=== PATIENT | male | born 1940 | race Caucasian/White ===

== ENCOUNTER 2020-08-07 12:37 | Observation (INO) | payer MEDICARE, SELFPAY ==
[2020-08-07] VITALS (20 sets, daily range): BP systolic 101–181; BP diastolic 53–87; PULSE 78–110; RESP 15–21; TEMP 36.4–37.6; O2SAT 92–97; BMI 25.8
--- NOTE | 2020-08-07 | PATH_ITS ---
[facility] Accession Number: [id number] . 01 Material submitted: . PART A: duodenum - DUODENAL BIOPSY/ULCER PART B: gastrointestinal site - STOMACH BIOPSY PART C: esophagus - ESOPHAGEAL BIOPSY . 01 Clinical history: . CAN'T SWALLOW OR DRINK, COUGHING UP PHLEM . 02 Diagnosis: A. Duodenum, Biopsy: Duodenal mucosa with foveolar metaplasia and ulcer, consistent with peptic duodenitis. Negative for features of sprue, dysplasia, or malignancy. . B. Stomach: Gastric antral mucosa with mild chronic inflammation and focal intestinal metaplasia. Intestinal metaplasia present in one of two biopsy fragments. Negative for Helicobacter organisms by immunohistochemistry. Negative for dysplasia or malignancy. . C. Esophagus, Biopsy: Zaina esoophagitis. Fungal hyphae morphologically consistent with zaina species highlighted on AB/PAS stain. Negative for dysplasia or malignancy. [facility] 08/12/2020 1645 Local . 02 Electronically signed: . Richard Tyson MD, PhD, Pathologist NPI- [id number] . 01 Gross description: . A. Specimen A is received in formalin, labeled duodenal biopsy/ulcer and consists of a 0.3 x 0.2 x 0.2 cm saul-pink fragment of soft tissue, which is entirely submitted in cassette A1. B. Specimen B is received in formalin, labeled stomach and consists of two saul fragments of soft tissue, measuring 0.5 x 0.4 x 0.2 cm in aggregate. The specimen is entirely submitted in cassette B1. C. Specimen C is received in formalin, labeled esophageal biopsy and consists of multiple saul fragments of soft tissue, measuring 0.5 x 0.4 x 0.2 cm in aggregate. The specimen is filtered and entirely submitted in cassette C1. ([id number]) /[facility] 08/10/2020 1700 Local . 02 Microscopic: . B. An immunohistochemical stain was performed to evaluate for Helicobacter organisms and is negative. The control stain showed appropriate reactivity. . C. An AB/PAS stain is performed to evaluate for fungal organisms, and highlights fungal hyphae and yeast forms morphologically consistent with zaina species. The control stain shows appropriate reactivity. . * This test was developed and its performance characteristics determined by [facility]. It has not been cleared or approved by the U.S. Food and Drug Administration. The FDA has determined that such clearance or approval is not necessary. This test is used for clinical purposes. It should not be regarded as investigational or for research. . 02 Pathologist provided ICD-10: K29.80, K31.9, B37.81 . 02 CPT . 698655, 688276, 473005, [id number], 947180 Performed at: 01 [facility] [place] [address] [id number] MD Wilfredo Morrell MD Phone: [phone] Performed at: 02 [facility] [place] [address] [place], [place] [id number] MD Eleanor Swanson MD Phone: [phone]
--- NOTE | 2020-08-07 13:41 | PC.NURSE ---
Pt reports since 1700 last night unable to keep down food or fluids due to feeling narrowed in his esophagus. states i really dont think anything is stuck States he had an endoscopy 4-5 years ago which showed nothing Pt spitting in emesis bag intermittently. speaking in full sentences.
[2020-08-07 13:54] LABS: Add Manual Diff / Slide Review NO; Basophils Absolute Auto 100 /uL (0-100); Basophils Percent Auto 0.4 % (0-2); Eosinophils Absolute Auto 200 /uL (0-450); Eosinophils Percent Auto 1.6 % (2-4); Hematocrit 44.6 % (41-53); Hemoglobin 14.8 g/dL (13.5-17.5); Lymphocytes Absolute Auto 1400 /uL (1100-4500); Lymphocytes Percent Auto 9.8 % (25-40); Mean Corpuscular HGB Conc 33.2 % (30-36); Mean Corpuscular Hemoglobin 31.7 PG (26-34); Mean Corpuscular Volume 95.4 fL (80-100); Monocytes Absolute Auto 1500 /uL (0-900); Monocytes Percent Auto 10.8 % (3-14); Neutrophils Absolute Auto 10900 /uL (1500-7000); Neutrophils Percent Auto 77.4 % (50-75); Platelet Count 240 X10^3/uL (150-400); Red Blood Cell Count 4.68 X10^6/uL (4.5-5.9); Red Cell Distribution Width 13.3 % (11.6-14.8); White Blood Cell Count 14.1 X10^3/uL (4.5-11.0)
[2020-08-07 14:01] LABS: Alanine Aminotransferase 16 IU/L (<50); Albumin 4.5 g/dL (3.5-5.0); Albumin Globulin Ratio 1.2 (1.0-2.8); Alkaline Phosphatase 99 U/L (38-126); Aspartate Aminotransferase 30 IU/L (17-59); BUN Creatinine Ratio 14.6 (6-22); Bilirubin Total 2.1 mg/dL (0.2-1.3); Blood Urea Nitrogen 13 mg/dL (9-20); Calcium 9.5 mg/dL (8.4-10.2); Carbon Dioxide 29 mmol/L (22-32); Chloride 102 mmol/L (98-107); Estimated Glomerular Filt Rate > 60.0 mL/min (>60); Globulin 3.7 g/dL (1.7-4.1); Glucose 119 mg/dL (80-110); HEMOLYSIS < 15 (0-50); Sodium 139 mmol/L (137-145); Total Protein 8.2 g/dL (6.3-8.2)
[2020-08-07] MEDS: SODIUM CHLORIDE 0.9% 1,000 ML 1000 ML IV (14:07)
[2020-08-07] MEDS: GLUCAGON,HUMAN RECOMBINANT 1 MG/ML VIAL IV (14:07)
[2020-08-07 14:31] LABS: COVID19 -Nasal RAPID Negative (Negative)
[2020-08-07] MEDS: ONDANSETRON 4 MG/2 ML INJ IV (15:36)
[2020-08-07] MEDS: METOCLOPRAMIDE 10 MG/2 ML INJ IV (15:36)
[2020-08-07] MEDS: diphenhydrAMINE 50 MG/ML VIAL 25 MG IV (15:36)
--- NOTE | 2020-08-07 17:04 | P.HP_ITS ---
History of Present Illness History of Present Illness Date Patient Seen: 08/07/20 Time Patient Seen: 17:04 Date of Onset of Symptoms: 08/06/20 Chief complaint: Can't Swallow or Drink, Coughing Up Phlem Narrative: This is a 80-year-old man with history of swallowing dysfunction, sinusitis, sinus surgery, HTN, DM2, chronic emphysema/bronchitis requiring inhalers, and food impaction requiring EGD in the past. He came into the ER today with complaint of having food stuck in his esophagus. He says he was eating last night around 5:00 p.m. and had roast beef which he felt got stuck in his esophagus, and ever since then anything he tried to eat or drink would not go down. He is not able to keep down his own secretions. In the ER he was given glucagon, Reglan, and Benadryl. He did not have any resolution of his symptoms. Past medical history: The pt recalls some of his medical history. Per chart review he has: DM2, HTN, Emphysema Says he has had a lot of trouble with his sinuses, and his throat. He says he has a lot of phlegm. He denies having had balloon dilation of his esophagus in the past although he syas he has had an EGD in the past for similar symptoms. Reviewing his chart I see a report from an EGD by Dr. Galdamez in 2014 which was normal. He has had two barium swallows which were non specific or normal. He says he has had other episodes since then where he has vomited up the food got stuck and was able to go back to normal after that. He denies any heart problems, heart attack, or stroke. Past surgical history: Sounds like he had a direct laryngoscopy by an ENT, he had sinus surgery, and he had an ankle surgery. Medications: He is not certain of all of his medications, but he does use an inhaler for his bronchitis/asthma Per chart review he takes Metformin, Lisinopril, Atorvastatin, and an Aspirin Allergies: Denies any allergies Family history: No esophageal disorders, he believes his family has many people with cancer, diabetes, and high blood pressure Social: He denies smoking tobacco (per chart review heavy smoking history, quit 12 years ago), reports having 1 or 2 drinks per week, denies other substances. ROS: He denies any chest pain, difficulty breathing, dysuria. He says he does feel little bit dehydrated, and has not urinated very much in the last 24 hours. Thirteen system review is otherwise negative other than as mentioned below and in HPI. PE: GENERAL: Well groomed and cooperative. Appears stated age. Answers questions promptly and appropriately. Vital signs noted. HENT: Normocephalic, atraumatic. Hard of hearing, with bilateral hearing aids in place. Somewhat abnormal, hoarse voice. Neck is nontender and supple. No enlarged or tender cervical lymph nodes. Normal swallowing, nontender nonenlarged thyroid. EYES: Conjunctiva pink, sclera white, no periorbital swelling. CARDIOVASCULAR: Regular rate. No pedal edema. RESPIRATORY: Non-tachypneic, breathing comfortably on room air. GASTROINTESTINAL: Abdomen soft and non-distended GENITALURINARY: No flank tenderness. MUSCULOSKELETAL: Equal tone and mass bilaterally. SKIN: Warm, dry, soft, appropriate color for ethnicity. No other lesions, rashes, or wounds. NEURO: Alert and Oriented X 3. No gross sensory deficits, or cognitive issues. PSYCH: Appropriate affect and mood. Patient History Family & Social History Safety & Behavioral: Feels Safe in Current Yes Environment Been Physically Hurt or No Threatened By a Person Tobacco & Substance use: Smoking Status Unknown if ever smoked alcohol intake frequency holiday/special occasion Substance Use Type does not use Meds Home Medications and Allergies Home Medications Medication Instructions Recorded Confirmed Type [BLOOD PRESSURE PILL] #0 12/05/06 History [DIABETIC MEDICINE] #0 12/05/06 History mupirocin 1 jorge TOPICAL TID #22 gm 09/22/17 Rx azithromycin [Zithromax] 250 - 500 mg PO QDAY #6 tab 10/22/17 Rx tiotropium bromide [Spiriva with 1 puff INH QDAY #0 10/22/17 History HandiHaler] Allergies Allergy/AdvReac Type Severity Reaction Status Date / Time No Known Drug Allergies Allergy Verified 08/07/20 12:43 Exam Vital Signs (past 8 hours): - 08/07/20 12:40 08/07/20 13:01 08/07/20 13:02 Temperature 97.6 F Pulse Rate 110 H 96 H 94 H Respiratory Rate 15 Blood Pressure 148/87 H 132/65 Pulse Oximetry 94 94 94 08/07/20 13:30 08/07/20 14:00 08/07/20 14:30 Temperature Pulse Rate 92 H 85 86 Respiratory Rate Blood Pressure 144/69 H 130/67 Pulse Oximetry 95 93 92 08/07/20 15:00 08/07/20 15:30 08/07/20 16:00 Temperature Pulse Rate 78 87 84 Respiratory Rate Blood Pressure 152/70 H 158/74 H 164/77 H Pulse Oximetry 94 94 94 Oxygen Delivery Method Room Air Objective Labs Result Diagrams: 08/07/20 13:00 08/07/20 13:00 Labs: Laboratory Results - last 24 hr 08/07/20 08/07/20 08/07/20 13:00 13:00 14:12 WBC 14.1 H RBC 4.68 Hgb 14.8 Hct 44.6 MCV 95.4 MCH 31.7 MCHC 33.2 RDW 13.3 Plt Count 240 Neut % (Auto) 77.4 H Lymph % (Auto) 9.8 L O'Brien % (Auto) 10.8 Eos % (Auto) 1.6 L Baso % (Auto) 0.4 Neut # (Auto) 65188 H Lymph # (Auto) 1400 O'Brien # (Auto) 1500 H Eos # (Auto) 200 Baso # (Auto) 100 Sodium 139 Potassium 4.0 Chloride 102 Carbon Dioxide 29 BUN 13 Creatinine 0.89 Estimated GFR > 60.0 BUN/Creatinine Ratio 14.6 Glucose 119 H Calcium 9.5 Total Bilirubin 2.1 H AST 30 ALT 16 Alkaline Phosphatase 99 Total Protein 8.2 Albumin 4.5 Globulin 3.7 Albumin/Globulin Ratio 1.2 COVID-19 PCR Negative Assessment & Plan Assessment and plan (1) Esophageal obstruction due to food impaction: Status: Acute (2) History of sinusitis: Status: Acute (3) History of sinus surgery: Status: Acute (4) Hypertension: Status: Acute (5) Diabetes: Status: Acute (6) Asthma: Status: Acute (7) Chronic bronchitis: Status: Acute Assessment & Plan narrative: This is a 72-year-old man with 24 hours of food impaction symptoms, consistent with a complete obstruction of his esophagus. He has not responded to medications given in the ER. Risks and benefits of esophagoscopy and removal of the foreign body under general anesthesia were discussed with the patient including risk of bleeding, perforation, damage to nearby structures, need for additional procedures, risks of anesthesia. The patient desires to proceed with EGD and removal of food impaction. I have told him he may go home this evening or tomorrow depending on what we find and how he tolerates the procedure. Plan: IV fluids Urgently to OR for EGD and disimpaction of food bolus under general anesthesia with ET tube intubation COVID-19 COVID-19 status: Negative Result date/Date tested (Pos, Neg/Pending): 08/07/20 Time Spent With Patient Time with patient: 25 - 35 minutes Quality VTE Deep Vein Thrombosis/Pulmonary Embolism Present on Admission: No
--- NOTE | 2020-08-07 18:20 | PM.OP.ENDO ---
Operative Date/Time/Diagnoses Date of procedure: 08/07/20 Time of procedure: 18:20 Pre-op diagnosis: Esophageal food impaction Post-op diagnosis: other (Esophageal meat impaction, duodenal ulcers, gastritis, fungal esophagitis) Procedure & Clinicians Study performed: Esophagogastroduodenoscopy Disimpaction of esophageal meat bolus using rat tooth forceps Biopsy of duodenum, stomach, and esophagus using standard biopsy forceps Same procedure as scheduled: Yes Indications: Food impaction in esophagus Surgeon: Yanet Rodrigues Procedure Notes SCOAP/Timeout: Performed Procedure in detail: The patient was brought to the room and identified. General anesthesia was induced and the patient was intubated by Dr. Myles. He was then placed in left lateral decubitus position with all bony prominences padded. A bite block was positioned in the patient's mouth to protect the lips, teeth, and tongue for the procedure. A surgical time-out was performed. The lubricated gastroscope was passed through the bite block and across the tongue and into the esophagus without incident. A tubular view of the esophagus was maintained as the scope was advanced. There were copious white plaques on the esophageal mucosa consistent with fungal esophagitis. The scope was advanced to the distal esophagus. At about 38cm a meat bolus was encountered. I was not able to push it down, and so it was removed piecemeal using rat tooth forceps. The meat was removed in three large hunks. Once the esophagus was cleared of impacted meat, it was examined thoroughly. There was not a specific ring or web, and no neoplasm was seen. The distal esophagus was edematous and somewhat narrow, but I was able to pass the scope into the stomach without incident. The scope was advanced through the stomach and to the pylorus. The scope was gently popped through the pylorus and into the duodenal bulb. Multiple shallow ulcers were seen at various stages of healing throughout the duodenal bulb and first part of the duodenum. The ulcers stopped at the second portion of the duodenum and were not seen in the third portion of the duodenum. These were biopsied. There was no active bleeding in the duodenum. The scope was withdrawn into the stomach. Mild to moderate endoscopic gastritis was seen in the distal stomach. This was biopsied. The scope was retroflexed and the gastric cardia was examined. There was no hiatal hernia. Fungal appearing plaques were seen at the GE junction. The scope was then straightened, and withdrawn into the esophagus. The Z-line appeared edematous, but obvious tongues of gastric mucosa were not seen coming up into the esophagus. The view was obscured by the fungal plaques and edema. The distal, mid and upper esophagus were biopsied, including samples of the fungal plaques. The scope was then withdrawn through the esophagus with a tubular view. The scope was then withdrawn from the patient the procedure was concluded. The patient was awakened from anesthesia and extubated. The patient tolerated the procedure well and was transferred to the PACU in stable condition. Findings: gastritis and other findings (severe duodenitis with duodenal ulcers, mild to moderate gastritis, fungal appearing esophagitis; impacted meat in distal esophagus) Specimen(s): other (Duodenum, stomach, esophagus) Complications: none Impression: Severe ulcerating duodenitis, gastritis, fungal appearing esophagitis with edema and narrowing of the distal esophagus Post-procedure Recommendations: Prescription for (Fluconazole,nystatin swish/swallow, omprazole), No ASA/NSAIDS, EGD in 6-8 weeks and Will call with biopsy results Plan for aftercare: Transfer to inpatient unit to begin treatment for esophagitis and for close monitoring over night Follow up: weeks (2) Disposition: Acute Care
--- NOTE | 2020-08-07 18:35 | ED_ITS ---
HPI - Nausea/Vomiting/Diarrhea <GARETH Lopez - Last Filed: 08/07/20 18:41> General Chief complaint: Nausea/Vomiting/Diarrhea Stated complaint: Can't Swallow or Drink, Coughing Up Phlem Time Seen by Provider: 08/07/20 13:16 Source: patient Mode of arrival: Ambulatory Limitations: no limitations History of Present Illness HPI Narrative: The patient is a 80-year-old male nonsmoker with history of ?breathing problems,hypertension, diabetes who presents with a chief complaint of inability to swallow food or drink or his secretions. This started at 8:00 p.m. last night when he was eating pot roast for dinner. He has not been able to take down any food or fluids since then. He denies any fevers, abdominal pain, states he feels ?100% other than the fact that I cannot swallow.He states that he has had issues with food boluses in the past, states he was scoped 5 years ago and no abnormalities were found. He does not believe that there is food stuck in his throat, though this occurred while he was trying to eat pot roast. Related Data Home Medications Medication Instructions Recorded Confirmed Spiriva with HandiHaler 1 puff INH QDAY #0 10/22/17 08/08/20 aspirin [Adult Low Dose Aspirin] 81 mg PO DAILY 08/08/20 08/08/20 atorvastatin 20 mg PO QPM 08/08/20 08/08/20 lisinopril 20 mg PO DAILY 08/08/20 08/08/20 metformin 500 mg PO DAILY 08/08/20 08/08/20 Previous Rx's Medication Instructions Recorded amoxicillin 1,000 mg PO Q12H #56 cap 08/08/20 clarithromycin 500 mg PO BID #30 tab 08/08/20 fluconazole [Diflucan] 100 mg PO DAILY #10 tab 08/08/20 omeprazole 20 mg PO BID #60 cap 08/08/20 Allergies Allergy/AdvReac Type Severity Reaction Status Date / Time No Known Drug Allergies Allergy Verified 08/07/20 12:43 Review of Systems <GARETH Lopez - Last Filed: 08/07/20 18:41> Review of Systems Narrative: GENERAL: Denies chills, fatigue, malaise, fever, sweats. HEENT: Denies sinus pain, ear pain, sore throat, difficulty swallowing, dizziness. RESPIRATORY: Denies dyspnea, cough, wheezing, hemoptysis, sputum. CARDIOVASCULAR: Denies chest pain, palpitations, orthopnea, edema, GASTROINTESTINAL: See HPI : Denies dysuria, frequency, incontinence, hematuria, urinary retention. MUSCULOSKELETAL: denies weakness, joint pain, or bony pain SKIN: Denies rash, skin lesions, or other NEUROLOGIC: Denies weakness, headache, numbness, change in speech, confusion, seizures, incoordination. PSYCHIATRIC: No concerning psychosocial issues. 12 point review of systems is negative except for those stated above Patient History <LATOSHA Lopez-BC - Last Filed: 08/07/20 18:41> Social History household members: none Smoking Status: Former smoker Smoking Status: Unknown if ever smoked alcohol intake frequency: holidays/special occasions only Substance Use Type: does not use Exam <LATOSHA Lopez-BC - Last Filed: 08/07/20 18:41> Narrative Exam Narrative: GENERAL: This is a well-nourished, well-developed patient, holding vomit bag HEAD: Atraumatic. Normocephalic. No temporal or scalp tenderness. EYES: Pupils equal round and reactive. Extraocular motions intact. No scleral icterus. No injection or drainage. ENT: Nose without bleeding, purulent drainage or septal hematoma. Throat without erythema, tonsillar hypertrophy or exudate. Uvula midline. Airway patent. Unable to swallow secretions NECK: Trachea midline. No JVD or lymphadenopathy. Supple, nontender, no meningeal signs. CARDIOVASCULAR: Regular rate and rhythm RESPIRATORY: Coarse bilaterally to auscultation. Increased respiratory effort. Speaking full sentences. GASTROINTESTINAL: Abdomen soft, non-tender, nondistended. No hepato- splenomegaly, or palpable masses. No guarding. Active bowel sounds all 4 quadrants. EXTREMITIES: No clubbing, cyanosis, or edema. No joint tenderness, effusion, or edema noted. BACK: Nontender without deformity or crepitance. No flank tenderness. NEURO: AOx3. Interactive. Age appropriate. SKIN: No rash or erythema on visible skin. Initial Vital Signs Initial Vital Signs: Vital Signs Temperature 97.6 F 08/07/20 12:40 Pulse Rate 110 H 08/07/20 12:40 Respiratory Rate 15 08/07/20 12:40 Blood Pressure 148/87 H 08/07/20 12:40 Pulse Oximetry 94 08/07/20 12:40 <Vikki Carmichael DO - Last Filed: 08/12/20 10:13> Initial Vital Signs Initial Vital Signs: Vital Signs Temperature 97.6 F 08/07/20 12:40 Pulse Rate 110 H 08/07/20 12:40 Respiratory Rate 15 08/07/20 12:40 Blood Pressure 148/87 H 08/07/20 12:40 Pulse Oximetry 94 08/07/20 12:40 Scores <GARETH Lopez - Last Filed: 08/07/20 18:41> GCS [place] coma scale eye opening: Spontaneous Roscoe coma scale verbal response: Orientated [place] coma scale motor response: Obey commands [place] coma scale total score: 15 Course <GARETH Lopez - Last Filed: 08/07/20 18:41> Orders Ordered: Discontinued Medications Diphenhydramine HCl (Benadryl) 25 mg IV NOW ONE Stop: 08/07/20 15:25 Last Admin: 08/07/20 15:36 Dose: 25 mg Documented by: JOSEFINA Fentanyl (Sublimaze) 0 mcg IV Q5MIN PRN PRN Reason: Pain, Severe (7-10) Fluconazole (Diflucan) 400 mg PO DAILY [facility] Last Admin: 08/08/20 08:54 Dose: 400 mg Documented by: KIKI Glucagon (Glucagen) 1 mg IV NOW ONE Stop: 08/07/20 13:46 Last Admin: 08/07/20 14:07 Dose: 1 mg Documented by: JOSEFINA Hydromorphone HCl (Dilaudid) 0 mg IV Q5MIN PRN PRN Reason: Pain, Mild (1-3) Sodium Chloride (Normal Saline 0.9%) 1,000 mls @ 1,000 mls/hr IV BOLUS ONE Stop: 08/07/20 15:04 Last Infusion: 08/07/20 15:15 Dose: 0 mls/hr Documented by: Admin: 08/07/20 14:07 Dose: 1,000 mls/hr Documented by: JOSEFINA Sodium Chloride (Normal Saline 0.9%) 1,000 mls @ 250 mls/hr IV CONT [facility] Last Admin: 08/07/20 17:34 Dose: Not Given Documented by: JOSEFINA Lactated Ringer's (Lactated Ringers) 1,000 mls @ 42 mls/hr IV CONT [facility] Last Admin: 08/07/20 19:10 Dose: Not Given Documented by: LUZ MARIA Lactated Ringer's (Lactated Ringers) 1,000 mls @ 120 mls/hr IV CONT [facility] Last Admin: 08/08/20 08:51 Dose: 120 mls/hr Documented by: Infusion: 08/08/20 08:47 Dose: 0 mls/hr Documented by: Admin: 08/07/20 19:21 Dose: 120 mls/hr Documented by: LUZ MARIA Fluconazole (Diflucan) 800 mg in 400 mls @ 100 mls/hr IV NOW ONE Stop: 08/07/20 23:06 Last Admin: 08/07/20 20:57 Dose: 100 mls/hr Documented by: JAUN Fluconazole (Diflucan) 400 mg in 200 mls @ 100 mls/hr IV NOW ONE Stop: 08/07/20 23:04 Last Admin: 08/07/20 21:29 Dose: Not Given Documented by: JAUN Metoclopramide HCl (Reglan) 10 mg IV NOW ONE Stop: 08/07/20 15:25 Last Admin: 08/07/20 15:36 Dose: 10 mg Documented by: JOSEFINA Nystatin (Mycostatin Susp) 500,000 unit PO BID [facility] Last Admin: 08/08/20 08:54 Dose: 500,000 unit Documented by: Admin: 08/07/20 21:01 Dose: 500,000 unit Documented by: JAUN Ondansetron HCl (Zofran) 4 mg IV NOW ONE Stop: 08/07/20 15:16 Last Admin: 08/07/20 15:36 Dose: 4 mg Documented by: JOSEFINA Pantoprazole Sodium (Protonix) 40 mg IV BID [facility] Last Admin: 08/08/20 08:54 Dose: 40 mg Documented by: Admin: 08/07/20 20:56 Dose: 40 mg Documented by: JAUN Vital Signs Vital signs: Vital Signs - 8 hr 08/07/20 12:40 08/07/20 13:01 08/07/20 13:02 Temperature 97.6 F Pulse Rate 110 H 96 H 94 H Respiratory Rate 15 Blood Pressure 148/87 H 132/65 Pulse Oximetry 94 94 94 08/07/20 13:30 08/07/20 14:00 08/07/20 14:30 Temperature Pulse Rate 92 H 85 86 Respiratory Rate Blood Pressure 144/69 H 130/67 Pulse Oximetry 95 93 92 08/07/20 15:00 08/07/20 15:30 08/07/20 16:00 Temperature Pulse Rate 78 87 84 Respiratory Rate Blood Pressure 152/70 H 158/74 H 164/77 H Pulse Oximetry 94 94 94 08/07/20 16:30 08/07/20 17:00 Temperature Pulse Rate 93 H 91 H Respiratory Rate Blood Pressure 168/78 H 181/79 H Pulse Oximetry 96 95 <Vikki Carmichael, - Last Filed: 08/12/20 10:13> Orders Ordered: Discontinued Medications Diphenhydramine HCl (Benadryl) 25 mg IV NOW ONE Stop: 08/07/20 15:25 Last Admin: 08/07/20 15:36 Dose: 25 mg Documented by: JOSEFINA Fentanyl (Sublimaze) 0 mcg IV Q5MIN PRN PRN Reason: Pain, Severe (7-10) Fluconazole (Diflucan) 400 mg PO DAILY [facility] Last Admin: 08/08/20 08:54 Dose: 400 mg Documented by: KIKI Glucagon (Glucagen) 1 mg IV NOW ONE Stop: 08/07/20 13:46 Last Admin: 08/07/20 14:07 Dose: 1 mg Documented by: JOSEFINA Hydromorphone HCl (Dilaudid) 0 mg IV Q5MIN PRN PRN Reason: Pain, Mild (1-3) Sodium Chloride (Normal Saline 0.9%) 1,000 mls @ 1,000 mls/hr IV BOLUS ONE Stop: 08/07/20 15:04 Last Infusion: 08/07/20 15:15 Dose: 0 mls/hr Documented by: Admin: 08/07/20 14:07 Dose: 1,000 mls/hr Documented by: JOSEFINA Sodium Chloride (Normal Saline 0.9%) 1,000 mls @ 250 mls/hr IV CONT [facility] Last Admin: 08/07/20 17:34 Dose: Not Given Documented by: JOSEFINA Lactated Ringer's (Lactated Ringers) 1,000 mls @ 42 mls/hr IV CONT [facility] Last Admin: 08/07/20 19:10 Dose: Not Given Documented by: LUZ MARIA Lactated Ringer's (Lactated Ringers) 1,000 mls @ 120 mls/hr IV CONT [facility] Last Admin: 08/08/20 08:51 Dose: 120 mls/hr Documented by: Infusion: 08/08/20 08:47 Dose: 0 mls/hr Documented by: Admin: 08/07/20 19:21 Dose: 120 mls/hr Documented by: LUZ MARIA Fluconazole (Diflucan) 800 mg in 400 mls @ 100 mls/hr IV NOW ONE Stop: 08/07/20 23:06 Last Admin: 08/07/20 20:57 Dose: 100 mls/hr Documented by: JAUN Fluconazole (Diflucan) 400 mg in 200 mls @ 100 mls/hr IV NOW ONE Stop: 08/07/20 23:04 Last Admin: 08/07/20 21:29 Dose: Not Given Documented by: JAUN Metoclopramide HCl (Reglan) 10 mg IV NOW ONE Stop: 08/07/20 15:25 Last Admin: 08/07/20 15:36 Dose: 10 mg Documented by: JOSEFINA Nystatin (Mycostatin Susp) 500,000 unit PO BID [facility] Last Admin: 08/08/20 08:54 Dose: 500,000 unit Documented by: Admin: 08/07/20 21:01 Dose: 500,000 unit Documented by: JAUN Ondansetron HCl (Zofran) 4 mg IV NOW ONE Stop: 08/07/20 15:16 Last Admin: 08/07/20 15:36 Dose: 4 mg Documented by: JOSEFINA Pantoprazole Sodium (Protonix) 40 mg IV BID [facility] Last Admin: 08/08/20 08:54 Dose: 40 mg Documented by: Admin: 08/07/20 20:56 Dose: 40 mg Documented by: JAUN Vital Signs Vital signs: Vital Signs - 8 hr 08/07/20 12:40 08/07/20 13:01 08/07/20 13:02 Temperature 97.6 F Pulse Rate 110 H 96 H 94 H Respiratory Rate 15 Blood Pressure 148/87 H 132/65 Pulse Oximetry 94 94 94 08/07/20 13:30 08/07/20 14:00 08/07/20 14:30 Temperature Pulse Rate 92 H 85 86 Respiratory Rate Blood Pressure 144/69 H 130/67 Pulse Oximetry 95 93 92 08/07/20 15:00 08/07/20 15:30 08/07/20 16:00 Temperature Pulse Rate 78 87 84 Respiratory Rate Blood Pressure 152/70 H 158/74 H 164/77 H Pulse Oximetry 94 94 94 08/07/20 16:30 08/07/20 17:00 Temperature Pulse Rate 93 H 91 H Respiratory Rate Blood Pressure 168/78 H 181/79 H Pulse Oximetry 96 95 MDM - Nausea/Vomiting/Diarrhea <LATOSHA Lopez- - Last Filed: 08/07/20 18:41> Lab Data Result diagrams: 08/08/20 05:06 08/08/20 05:06 Labs: Lab Results 08/07/20 08/07/20 08/07/20 Range/Units 13:00 13:00 14:12 WBC 14.1 H (4.5-11.0) X10^3/uL RBC 4.68 (4.5-5.9) X10^6/uL Hgb 14.8 (13.5-17.5) g/dL Hct 44.6 (41-53) % MCV 95.4 (80-100) fL MCH 31.7 (26-34) PG MCHC 33.2 (30-36) % RDW 13.3 (11.6-14.8) % Plt Count 240 (150-400) X10^3/uL Neut % (Auto) 77.4 H (50-75) % Lymph % (Auto) 9.8 L (25-40) % Carver % (Auto) 10.8 (3-14) % Eos % (Auto) 1.6 L (2-4) % Baso % (Auto) 0.4 (0-2) % Neut # (Auto) 46968 H (2900-2881) /uL Lymph # (Auto) 1400 (6615-1200) /uL Carver # (Auto) 1500 H (0-900) /uL Eos # (Auto) 200 (0-450) /uL Baso # (Auto) 100 (0-100) /uL Sodium 139 (137-145) mmol/L Potassium 4.0 (3.4-5.1) mmol/L Chloride 102 (98-107) mmol/L Carbon Dioxide 29 (22-32) mmol/L BUN 13 (9-20) mg/dL Creatinine 0.89 (0.66-1.25) mg/dL Estimated GFR > 60.0 (>60) mL/min BUN/Creatinine Ratio 14.6 (6-22) Glucose 119 H (80-110) mg/dL Calcium 9.5 (8.4-10.2) mg/dL Total Bilirubin 2.1 H (0.2-1.3) mg/dL AST 30 (17-59) IU/L ALT 16 (<50) IU/L Alkaline Phosphatase 99 (38-126) U/L Total Protein 8.2 (6.3-8.2) g/dL Albumin 4.5 (3.5-5.0) g/dL Globulin 3.7 (1.7-4.1) g/dL Albumin/Globulin Ratio 1.2 (1.0-2.8) COVID-19 PCR Negative (Negative) MDM Narrative Medical decision making narrative: The patient is a 80-year-old male who presents with a chief complaint of inability to swallow his own secretions food and water. His history is concerning for food boluses. He was treated in the emergency depart with IV fluids, glucagon, Reglan and Benadryl as per Dr. Rodrigues from surgery. This was unsuccessful. Subsequently the patient was taken to the operating room for scoped by Dr. Rodrigues. The patient remained pleasant, interactive, nontoxic appearing and in no apparent distress throughout his stay in the emergency department. <Vikki Carmichael, DO - Last Filed: 08/12/20 10:13> Lab Data Attestation: I reviewed the patient's lab results. Labs: Lab Results 08/07/20 08/07/20 08/07/20 Range/Units 13:00 13:00 14:12 WBC 14.1 H (4.5-11.0) X10^3/uL RBC 4.68 (4.5-5.9) X10^6/uL Hgb 14.8 (13.5-17.5) g/dL Hct 44.6 (41-53) % MCV 95.4 (80-100) fL MCH 31.7 (26-34) PG MCHC 33.2 (30-36) % RDW 13.3 (11.6-14.8) % Plt Count 240 (150-400) X10^3/uL Neut % (Auto) 77.4 H (50-75) % Lymph % (Auto) 9.8 L (25-40) % Carver % (Auto) 10.8 (3-14) % Eos % (Auto) 1.6 L (2-4) % Baso % (Auto) 0.4 (0-2) % Neut # (Auto) 01688 H (6010-7303) /uL Lymph # (Auto) 1400 (6017-8157) /uL Carver # (Auto) 1500 H (0-900) /uL Eos # (Auto) 200 (0-450) /uL Baso # (Auto) 100 (0-100) /uL Sodium 139 (137-145) mmol/L Potassium 4.0 (3.4-5.1) mmol/L Chloride 102 (98-107) mmol/L Carbon Dioxide 29 (22-32) mmol/L BUN 13 (9-20) mg/dL Creatinine 0.89 (0.66-1.25) mg/dL Estimated GFR > 60.0 (>60) mL/min BUN/Creatinine Ratio 14.6 (6-22) Glucose 119 H (80-110) mg/dL Calcium 9.5 (8.4-10.2) mg/dL Total Bilirubin 2.1 H (0.2-1.3) mg/dL AST 30 (17-59) IU/L ALT 16 (<50) IU/L Alkaline Phosphatase 99 (38-126) U/L Total Protein 8.2 (6.3-8.2) g/dL Albumin 4.5 (3.5-5.0) g/dL Globulin 3.7 (1.7-4.1) g/dL Albumin/Globulin Ratio 1.2 (1.0-2.8) COVID-19 PCR Negative (Negative) MDM Narrative Medical decision making narrative: patient case discussed attempted glucagon without improvement, patient taken to OR for scope by Dr. Rodrigues. Discharge Plan Departure Patient Disposition: Admitted to Surgery Clinical Impression: Esophageal obstruction due to food impaction Discharge Date/Time: 08/07/20 17:33 Admit Date/Time: 08/07/20 17:00 Admit Provider: Yanet Rodrigues
--- NOTE | 2020-08-07 18:52 | SUR.PHASEI ---
pt transferred to acute care floor in stable condition, vss. Bedside report given to ELI Mosley upon arrival to room. Pt transferred himself from stretcher into bed. Transferred care of pt to ELI Mosley at that time.
[2020-08-07] MEDS: LACTATED RINGERS 1,000 ML 120 ML IV (19:21)
[2020-08-07 20:27] LABS: Hemoglobin A1C% w Est Avg Glu 6.1 % (4.0-6.0)
[2020-08-07] MEDS: PANTOPRAZOLE 40 MG VIAL IV (20:56)
[2020-08-07] MEDS: PIGGYBACK IV (20:57)
[2020-08-07] MEDS: FLUCONAZOLE 800 MG/400 ML IV (20:57)
[2020-08-07] MEDS: NYSTATIN SUSP 500,000 UNIT/5 ML UDC 500000 UNIT PO (21:01)
[2020-08-07 21:22] LABS: HIV 1 & 2 Ab/Ag 4th Gen Combo NEGATIVE (NEGATIVE)
[2020-08-08 00:05] VITALS: BP 159/57; PULSE 85; RESP 16; TEMP 37; O2SAT 94
[2020-08-08 04:10] VITALS: BP 109/59; PULSE 74; RESP 16; TEMP 37.2; O2SAT 95
[2020-08-08 05:29] LABS: Add Manual Diff / Slide Review NO; Basophils Absolute Auto 100 /uL (0-100); Basophils Percent Auto 0.5 % (0-2); Eosinophils Absolute Auto 700 /uL (0-450); Eosinophils Percent Auto 5.1 % (2-4); Hematocrit 37.8 % (41-53); Hemoglobin 12.4 g/dL (13.5-17.5); Lymphocytes Absolute Auto 1600 /uL (1100-4500); Lymphocytes Percent Auto 11.8 % (25-40); Mean Corpuscular HGB Conc 32.9 % (30-36); Mean Corpuscular Hemoglobin 31.8 PG (26-34); Mean Corpuscular Volume 96.6 fL (80-100); Monocytes Absolute Auto 1500 /uL (0-900); Monocytes Percent Auto 11.3 % (3-14); Neutrophils Absolute Auto 9500 /uL (1500-7000); Neutrophils Percent Auto 71.3 % (50-75); Platelet Count 195 X10^3/uL (150-400); Red Blood Cell Count 3.91 X10^6/uL (4.5-5.9); Red Cell Distribution Width 13.2 % (11.6-14.8); White Blood Cell Count 13.2 X10^3/uL (4.5-11.0)
[2020-08-08 05:43] LABS: Alanine Aminotransferase 11 IU/L (<50); Albumin 3.3 g/dL (3.5-5.0); Albumin Globulin Ratio 1.2 (1.0-2.8); Alkaline Phosphatase 65 U/L (38-126); Aspartate Aminotransferase 21 IU/L (17-59); BUN Creatinine Ratio 15.1 (6-22); Bilirubin Total 1.7 mg/dL (0.2-1.3); Blood Urea Nitrogen 13 mg/dL (9-20); Calcium 8.5 mg/dL (8.4-10.2); Carbon Dioxide 29 mmol/L (22-32); Chloride 104 mmol/L (98-107); Estimated Glomerular Filt Rate > 60.0 mL/min (>60); Globulin 2.8 g/dL (1.7-4.1); Glucose 88 mg/dL (80-110); HEMOLYSIS < 15 (0-50); Sodium 136 mmol/L (137-145); Total Protein 6.1 g/dL (6.3-8.2)
[2020-08-08 05:45] LABS: Magnesium 1.8 mg/dL (1.6-2.3); Phosphorous 3.5 mg/dL (2.3-3.7)
[2020-08-08] MEDS: LACTATED RINGERS 1,000 ML 120 ML IV (08:51)
[2020-08-08] MEDS: PANTOPRAZOLE 40 MG VIAL IV (08:54)
[2020-08-08] MEDS: NYSTATIN SUSP 500,000 UNIT/5 ML UDC 500000 UNIT PO (08:54)
[2020-08-08] MEDS: FLUCONAZOLE 40 MG/ML SUSP 400 MG PO (08:54)
--- NOTE | 2020-08-08 10:57 | PC.NURSE ---
Pt is dressed and ready for discharge home. He has his own vehicle here. [place] town. HL has been removed. Went over d/c instructions with Pt- reviewed discharge meds, time of last dose, encouraged easy to digest/soft foods to help with healing of the throat and ulcer. Reviewed stroke education and Pt to follow up with Dr. Scott next week. Pt denies further questions and was taken out via w/c by TRANSFER DRIVER with all belongings .
--- NOTE | 2020-08-08 12:51 | CM.DANOTE ---
Addendum entered by Rina Persaud LPN 08/08/20 13:06: Pt was taken urgently to OR for EGD and removal of food impaction. Today he was ok'd for dc to home. A check in now shows that he left for his home in [place] in his vehicle just before 11AM. No d/c concerns were noted by the care team members. Follow up with Dr. Scott was planned. Original Note: Discharge Planning/Care Management DCP: assessment: case received, EMr reviewed. Discussed in Team Rounds. Pt is a 80 year old male who admitted to care of [facility]: Dr. Rodrigues. Payer: Medicare and [employer]ARP PCP: Dr. Scott. CM Discharge Assessment Start: 08/08/20 12:50 Freq: Status: Active Protocol: Document 08/08/20 12:50 ITV (Rec: 08/08/20 12:51 ITV [id number]) Discharge Planning Assessment Advance Directives? No History Provided By Medical Record Prior Living Arrangements House Household Members none Type of transportation used prior to Drives own vehicle admit Independent with ADL's Yes Is patient alert and oriented? Yes
--- NOTE | 2020-08-09 17:18 | P.DS_ITS ---
History of Present Illness History of Present Illness Chief complaint: Can't Swallow or Drink, Coughing Up Phlem Discharge Providers Provider Date of admission: 08/07/20 17:00 Discharge Date: 08/08/20 Primary care physician: Alexander Scott MD Consults: 08/07/20 19:43 Consult to Dietitian, Adult Routine Comment: Reason For Exam: Swallowing difficulties, recent wt loss. Discharge provider: Shyam Galdamez MD Summary Hospital Course Discharge Diagnosis: Esophageal obstruction acute due to food esophagitis clinically due to yeast. Biopsies pending. Gastritis mild acute duodenal ulcers multiple acute without bleeding elevated cholesterol chronic on medication hypertension chronic on medication type 2 diabetes chronic on medication Exam Vital Signs (past 8 hours): Oxygen Delivery Method Room Air Oxygen Flow Rate 0 Narrative Exam Narrative: lungs are clear to auscultation no rales or rhonchi heart re gular rate and rhythm no murmur gallop abdomen soft nontender without mass Objective Labs Result Diagrams: 08/08/20 05:06 08/08/20 05:06 Discharge Assessment & Plan Assessment and Plan Assessment: patient with multiple ulcers in his duodenum, gastritis, possible yeast and esophagitis, and obstruction of his esophagus due to food he underwent an EGD to relieve his obstruction and biopsies were taken at the time of the EGD. He was discharged on fluconazole, treatment for H pylori with omeprazole twice a day, clarithromycin 500 b.i.d. and amoxicillin 1 g b.i.d.. He is to follow up with Dr. Rodrigues Discharge Plan Discharge Plan Patient Disposition: Home Provider Discharge Comment: you have inflammation in your esophagus (food pipe) and ulcers Discharge orders & Medications Prescriptions: New fluconazole [Diflucan] 100 mg tablet 100 mg PO DAILY Qty: 10 RF: 0 omeprazole 20 mg capsule,delayed release(DR/EC) 20 mg PO BID Qty: 60 RF: 2 amoxicillin 500 mg capsule 1,000 mg PO Q12H Qty: 56 RF: 0 clarithromycin 500 mg tablet 500 mg PO BID Qty: 30 RF: 0 Continued Spiriva with HandiHaler 18 MCG capsule, w/inhalation device 1 puff INH QDAY Qty: 0 RF: 0 atorvastatin 20 mg Tablet 20 mg PO QPM RF: 0 lisinopril 20 mg Tablet 20 mg PO DAILY RF: 0 aspirin [Adult Low Dose Aspirin] 81 mg Tablet,Delayed Release (Dr/Ec) 81 mg PO DAILY RF: 0 metformin 500 mg Tablet Extended Release 24 Hr 500 mg PO DAILY RF: 0 Follow up/Referrals: Alexander Scott MD [Primary Care Provider] - Diet/Activity/Treatments Diet: Diet as Tolerated Diet comment: soft easy to swollow foods Activity: no restriction Visit Report/Discharge Packet Instructions: DI for Gastroesophageal Reflux Disease (GERD), DI for Gastric Ulcer, Amoxicillin, Fluconazole, Clarithromycin, Omeprazole, Karen Esophagitis Visit Report Forms: Patient Portal/API, Stroke Signs & Symptoms Discharge Data Primary Care Provider: Alexander Scott Attending Provider: Yanet Rodrigues Admit Date/Time: 08/07/20 17:00 Discharges patient from system. Discharge Date/Time: 08/08/20 11:02 Quality VTE Deep Vein Thrombosis/Pulmonary Embolism Present on Admission: No
--- NOTE | 2020-08-13 00:14 | PC.NURSE ---
Late Entry: Diflucan infusion initiated 08/07 @ 20:57, complete 00:58.
== END 2020-08-08 11:02 | disposition home or self-care (01) ==
LOC: ED 13:16 → AC 17:01
PROVIDERS: Admitting Provider Surgery; Emergency Provider Nurse Practitioner Family; Family Provider Family Medicine; PCP Family Medicine; Referring Provider Nurse Practitioner Family; Visit Provider Surgery
PROC: 0DJ08ZZ Inspection of Upper Intestinal Tract, Via Natural or Artificial Opening Endoscopic (ICD-10-PCS; CPT 43235; principal; 2020-08-07 17:30)
DX: T18.128A Food in esophagus causing other injury, initial encounter (principal); R11.2 Nausea with vomiting, unspecified; I10 Essential (primary) hypertension; E11.9 Type 2 diabetes mellitus without complications; J45.909 Unspecified asthma, uncomplicated; Z79.84 Long term (current) use of oral hypoglycemic drugs; K26.9 Duodenal ulcer, unspecified as acute or chronic, without hemorrhage or perforation; K29.50 Unspecified chronic gastritis without bleeding; K20.80 Other esophagitis without bleeding; Z11.59 Encounter for screening for other viral diseases
CPT/HCPCS: 43247; 43239; 36415; 80053; 82962; 83036; 83735; 84100; 85025; 87040; 87389; 87635; 96361; 96365; 96366; 96375; 96376; 99218; 99284; G0378; C9113; J1200; J1450; J1610; J2405; J2765

== ENCOUNTER → 2020-08-24 10:41 | Outpatient (CLI) | payer MEDICARE, SELFPAY ==
[2020-08-07 19:31] VITALS: BMI 25.8
--- NOTE | 2020-08-24 10:43 | DI.RAD.S_ITS ---
PROCEDURE: FL BARIUM SWALLOW INDICATIONS: Karen esophagitis, dysphagia COMPARISON: [facility], BARIUM SWALLOW WITH SPEECH, 02/17/2016, 11:33. [facility], BARIUM SWALLOW WITH SPEECH, 11/10/2015, 11:32. FINDINGS: Function: There is normal esophageal peristalsis. There was both moderate spontaneous and elicited gastroesophageal reflux. No distal esophageal stricture was observed Morphology: Air-contrast images demonstrate normal mucosal morphology. Single contrast views show no esophageal strictures, extrinsic mass effects, or diverticula. Limited images of the stomach demonstrate normal appearance. IMPRESSION: Moderate spontaneous and elicited gastroesophageal reflux without evidence of mass or stricture associated. At times the reflux extended to the junction of the upper and middle thirds of the esophagus. Dictated by: Irwin Richey M.D. on 08/24/2020 at 14:56 Approved by: Irwin Richey M.D. on 08/24/2020 at 14:57
== END ==
PROVIDERS: Family Provider Family Medicine; PCP Family Medicine; Referring Provider Family Medicine; Visit Provider Surgery
DX: R13.10 Dysphagia, unspecified (principal); B37.81 Candidal esophagitis
CPT/HCPCS: 74220

== ENCOUNTER → 2020-11-11 13:45 | Outpatient (CLI) | payer MEDICARE, SELFPAY ==
[2020-11-08 13:23] VITALS: BMI 25.8
[2020-11-11 15:50] LABS: COVID19 -Nasal RAPID Negative (Negative)
== END ==
PROVIDERS: Family Provider Family Medicine; PCP Family Medicine; Visit Provider Surgery
DX: Z20.822 Contact with and (suspected) exposure to COVID-19 (principal); Z01.812 Encounter for preprocedural laboratory examination
CPT/HCPCS: 87635; C9803

== ENCOUNTER 2020-11-12 09:29 | Day surgery (SDC) | payer MEDICARE, SELFPAY ==
[2020-08-07 19:31] VITALS: BMI 25.8
[2020-11-08 13:23] VITALS: BMI 25.8
[2020-11-12] VITALS (8 sets, daily range): BP systolic 102–133; BP diastolic 58–73; PULSE 71–77; RESP 10–16; TEMP 36.3–37; O2SAT 94–99; BMI 26.7
--- NOTE | 2020-11-12 | PATH_ITS ---
[facility] Accession Number: [id number] . 01 Material submitted: . PART A: duodenum - DUODENAL PART B: gastrointestinal site - STOMACH PART C: esophagus - ESOPHAGUS . 02 Diagnosis: A. Duodenum, Biopsy: Duodenal mucosa with no diagnostic abnormality. Negative for active inflammation, features of sprue, dysplasia, or malignancy. . B. Stomach, Biopsies: Gastric antral and body mucosa with mild chronic inflammation and focal intestinal metaplasia. Intestinal metaplasia present in one of two antral biopsy fragments. Negative for Helicobacter organisms by immunohistochemistry. Negative for dysplasia or malignancy. . C. Esophagus, Biopsies: Karen esophagitis. Fungal hpyhae and yeast forms morphologically consistent with Karen species seen on H/E stain. Negative for dysplasia or malignancy. MRV 11/18/2020 1338 Local . 02 Electronically signed: . Richard Tyson MD, PhD, Pathologist NPI- [id number] . 01 Gross description: . Part A: DUODENAL: Received in formalin are 2 fragment(s) of saul, soft tissue measuring 0.2 x 0.2 x 0.1 cm to 0.3 x 0.3 x 0.2 cm submitted entirely in 1 cassette(s) Part B: STOMACH: Received in formalin are 2 fragment(s) of saul, soft tissue measuring 0.2 x 0.2 x 0.1 cm to 0.4 x 0.2 x 0.2 cm submitted entirely in 1 cassette(s) Part C: ESOPHAGUS: Received in formalin are multiple fragment(s) of saul, soft tissue measuring 0.1 x 0.1 x 0.1 cm to 0.2 x 0.2 x 0.2 cm submitted entirely in 1 cassette(s) /MARGARET 11/15/2020 1912 Local . 02 Microscopic: . B. An immunohistochemical stain was performed to evaluate for Helicobacter organisms and is negative. The control stain showed appropriate reactivity. . * This test was developed and its performance characteristics determined by [facility]. It has not been cleared or approved by the U.S. Food and Drug Administration. The FDA has determined that such clearance or approval is not necessary. This test is used for clinical purposes. It should not be regarded as investigational or for research. . 02 Pathologist provided ICD-10: K29.70, K31.9, B37.81 . 02 CPT . 649876, 549093, 163976, U96192 Performed at: 01 [facility] [address] [place] [address], [place], [place] [id number] MD Wilfredo Morrell MD Phone: [phone] Performed at: 02 [facility] [address] [place] [id number] MD Eleanor Swanson MD Phone: [phone]
[2020-11-12] MEDS: SODIUM CHLORIDE 0.9% 1,000 ML 200 ML IV (10:28)
--- NOTE | 2020-11-12 10:34 | PM.HP.1 ---
History of Present Illness History of Present Illness Date Patient Seen: 11/12/20 Time Patient Seen: 10:34 Chief complaint: SDC Narrative: This is a 80-year-old man with history of swallowing dysfunction, sinusitis, sinus surgery, HTN, DM2, chronic emphysema/bronchitis requiring inhalers, and food impaction requiring EGD in the past. He came into the ER in July with complaint of having food stuck in his esophagus. He was taken to the OR for EGD, and was found to have meat impacted in his esophagus, and significant esophageal edema and the appearance of fungus lining the esophagus. He was found to have fungal esophagitis, and was treated with course of antifungals. The patient says he is doing very well now, and denies any swallowing difficulties. He says he sometimes has some white color on his tongue, and his primary doctor has put him on prednisone recently for this. He was taken off of the PPI because of an apparent allergic reactions/rash that developed, and was thought to be due to the PPI. He says he finished his course of antifungals, and has been able to eat liquids and solids with no problems and is making sure to chew his food well. ROS: Patient reports a cough, in chronic sinus issues. Thirteen system review is otherwise negative other than as mentioned below and in HPI. PE: GENERAL: Well groomed and cooperative. Appears stated age. Answers questions promptly and appropriately. Vital signs noted. HENT: Normocephalic, atraumatic. Hard of hearing, with bilateral hearing aids in place. hoarse, gravelly voice which is his baseline. Normal appearance of tongue without coating or discoloration. Neck is nontender and supple. No enlarged or tender cervical lymph nodes. EYES: Conjunctiva pink, sclera white, no periorbital swelling. CARDIOVASCULAR: Regular rate. No pedal edema. RESPIRATORY: Non-tachypneic, breathing comfortably on room air. GASTROINTESTINAL: Abdomen soft and non-distended GENITALURINARY: No flank tenderness. MUSCULOSKELETAL: Equal tone and mass bilaterally. SKIN: Warm, dry, soft, appropriate color for ethnicity. No other lesions, rashes, or wounds. NEURO: Alert and Oriented X 3. No gross sensory deficits, or cognitive issues. PSYCH: Appropriate affect and mood. Patient History Family & Social History Social History: household members none Tobacco & Substance use: Smoking Status Former smoker alcohol intake current alcohol intake frequency a few times a week Substance Use Type does not use Meds Home Medications and Allergies Home Medications Medication Instructions Recorded Confirmed Type Spiriva with HandiHaler 1 puff INH QDAY #0 10/22/17 11/12/20 History atorvastatin 20 mg PO QPM 08/08/20 11/12/20 History lisinopril 20 mg PO DAILY 08/08/20 11/12/20 History metformin 500 mg PO DAILY 08/08/20 11/12/20 History hydroxyzine HCl 50 mg PO BEDTIME 11/12/20 11/12/20 History prednisone 5 mg PO PER PKG DIR 11/12/20 11/12/20 History Allergies Allergy/AdvReac Type Severity Reaction Status Date / Time No Known Drug Allergies Allergy Verified 11/12/20 10:00 Exam Vital Signs (past 8 hours): - 11/12/20 10:18 Temperature 97.9 F Pulse Rate 72 Respiratory Rate 16 Blood Pressure 133/73 Pulse Oximetry 99 Oxygen Delivery Method Room Air Assessment & Plan Assessment and plan (1) Dysphagia: Qualifiers: Dysphagia type: unspecified Qualified Code(s): R13.10 - Dysphagia, unspecified Status: Acute (2) Peptic ulcer disease: Status: Acute (3) Esophageal yeast infection: Status: Acute (4) Fungal esophagitis: Status: Acute Assessment & Plan narrative: Risks and benefits of surveillance EGD and possible biopsy were discussed with the patient including risk of bleeding, perforation, need for additional procedures, risks of anesthesia. The patient desires to proceed with the upper endoscopy procedure. COVID-19 COVID-19 status: Negative Result date/Date tested (Pos, Neg/Pending): 11/11/20 Time Spent With Patient Time with patient: 15-24 minutes Quality VTE Deep Vein Thrombosis/Pulmonary Embolism Present on Admission: No
[2020-11-12] MEDS: fentaNYL 250 MCG/5 ML INJ IV (10:42)
[2020-11-12] MEDS: MIDAZOLAM 5 MG/5 ML VIAL IV (10:42)
[2020-11-12] MEDS: LIDOCAINE 4% SOLN 50 ML 20 ML TOP (10:43)
--- NOTE | 2020-11-12 10:56 | PM.OP.ENDO ---
Operative Date/Time/Diagnoses Date of procedure: 11/12/20 Time of procedure: 10:56 Pre-op diagnosis: History of fungal esophagitis and meat impaction Post-op diagnosis: other (Normal caliber esophagus, without narrowing, but with appearance of ongoing duodenal ulcers and esophageal fungus) Procedure & Clinicians Study performed: Esophagogastric duodenoscopy Biopsies of duodenum, stomach, esophagus using standard forceps Procedural sedation performed by the endoscopist Same procedure as scheduled: Yes Indications: History of duodenal ulcers, esophageal candidiasis, esophageal edema, and meat impacted Surgeon: Yanet Rodrigues Procedure Notes SCOAP/Timeout: Performed Procedure in detail: The patient was brought to the room and placed in left lateral decubitus position with all bony prominences padded. A bite block was positioned in the patient's mouth to protect the lips, teeth, and tongue for the procedure. A time-out was performed and then the patient was given procedural sedation starting with [4] mg of Versed and [100] mcg of fentanyl. Vitals were monitored throughout the procedure and remained stable. Once adequately sedated, the procedure was begun. The lubricated gastroscope was passed through the bite block and across the tongue and into the esophagus without incident. A tubular view of the esophagus was maintained as the scope was advanced through the esophagus and into the stomach. Adherent patches of white debris were seen diffusely throughout the esophagus, consistent with an ongoing fungal infection, although much improved from his prior presentation. There was no narrowing of the esophagus or edema of the esophagus. The scope was advanced through the stomach and to the pylorus. The scope was gently popped through the pylorus and into the duodenal bulb. The scope was flexed and advanced into the second and third portions of the duodenum. The 2nd and 3rd portions of the duodenum appeared normal. There was a shallow ulcer in the duodenal bulb a with signs of erosion, although improved from prior. Biopsies were taken. The scope was withdrawn into the stomach. There was some moderate endoscopic gastritis in the stomach, with no erosions or active bleeding. Biopsies were taken. The scope was retroflexed and the gastric cardia was examined. There is no gaping of the scope at the hiatus, and no evidence of hiatal hernia. The scope was then straightened, and withdrawn into the esophagus. Biopsies were taken in the distal, mid, and upper esophagus to rule out ongoing fungal esophagitis. The scope was then withdrawn through the esophagus with a tubular view. The scope was then withdrawn from the patient the procedure was concluded. The patient tolerated the procedure well and was transferred to the PACU in stable condition. Sedation minutes: 13 Findings: duodenal ulcer, gastritis and other findings (Fungal plaques in the esophagus) Specimen(s): other (Biopsies of the duodenum, stomach, and esophagus) Complications: none Impression: Ongoing ulcerations of the duodenum, and ongoing fungal plaques in the esophagus Post-procedure Recommendations: Other recommendation (Pending biopsy results) Follow up: as needed Disposition: PACU
--- NOTE | 2020-11-12 11:50 | SUR.PHASEII ---
Pt has met discharge criteria: VSS, able to drink fluids without difficulty, denied pain or nausea. Discharge instructions discussed with pt, all questions answered. Transported via W/C to private vehicle.
== END 2020-11-12 11:56 | disposition home or self-care (01) ==
PROVIDERS: Family Provider Family Medicine; PCP Family Medicine; Referring Provider Surgery; Visit Provider Surgery
PROC: 0DJ08ZZ Inspection of Upper Intestinal Tract, Via Natural or Artificial Opening Endoscopic (ICD-10-PCS; CPT 43235; principal; 2020-11-12 10:45)
DX: B37.81 Candidal esophagitis (principal); T18.128A Food in esophagus causing other injury, initial encounter; R13.10 Dysphagia, unspecified; K29.50 Unspecified chronic gastritis without bleeding; K26.9 Duodenal ulcer, unspecified as acute or chronic, without hemorrhage or perforation
CPT/HCPCS: 43239; 99152; J2250; J3010

== ENCOUNTER → 2021-04-13 09:43 | Outpatient (CLI) | payer MEDICARE, SELFPAY ==
[2020-11-08 13:23] VITALS: BMI 25.8
[2021-04-13 10:59] LABS: COVID19 -Nasal RAPID Negative (Negative)
== END ==
PROVIDERS: Family Provider Family Medicine; PCP Family Medicine; Visit Provider Surgery
DX: Z20.822 Contact with and (suspected) exposure to COVID-19 (principal)
CPT/HCPCS: 87635; C9803

== ENCOUNTER 2021-04-14 08:17 | Day surgery (SDC) | payer MEDICARE, SELFPAY ==
[2020-11-08 13:23] VITALS: BMI 25.8
[2021-04-14] VITALS (8 sets, daily range): BP systolic 105–133; BP diastolic 66–83; PULSE 2–85; RESP 11–22; TEMP 36.2–36.7; O2SAT 94–99; BMI 27.3
--- NOTE | 2021-04-14 | PATH_ITS ---
[facility] Accession Number: [id number] . 01 Material submitted: . PART A: stomach - STOMACH BIOPSY PART B: esophagus - ESOPHAGUS BIOPSY . 02 Diagnosis: A. Stomach, Biopsy: Antral and body-type mucosa with mild chronic gastritis and intestinal metaplasia. Negative for Helicobacter by immunohistochemistry. Negative for dysplasia and malignancy. . B. Esophagus, Biopsy: Squamous epithelium with no diagnostic abnormality. Intraepithelial eosinophils are not increased. Negative for dysplasia and malignancy. MRV 04/20/2021 1446 Local . 02 Electronically signed: . Eleanor Swanson MD, Pathologist NPI- [id number] . 01 Gross description: . Part A: STOMACH BIOPSY: Received in formalin are multiple fragment(s) of saul, soft tissue measuring 1.2 x 0.4 x 0.2 cm in aggregate submitted entirely in 1 cassette(s) Part B: ESOPHAGUS BIOPSY: Received in formalin are multiple fragment(s) of saul, soft tissue measuring 0.4 x 0.3 x 0.1 cm in aggregate submitted entirely in 1 cassette(s) /GISSEL 04/15/2021 0434 Local . 02 Microscopic: . A. An immunohistochemical stain was performed to evaluate for Helicobacter organisms and is negative. The control stain showed appropriate reactivity. . * This test was developed and its performance characteristics determined by [facility]. It has not been cleared or approved by the U.S. Food and Drug Administration. The FDA has determined that such clearance or approval is not necessary. This test is used for clinical purposes. It should not be regarded as investigational or for research. . 02 Pathologist provided ICD-10: K20.80 . 02 CPT . 967272, 677550, T76755 Performed at: [address] [place] [address], [place], [place] [id number] MD Wilfredo Morrell MD Phone: [phone] Performed at: 02 [place] [id number] [place] [id number] MD Eleanor Swanson MD Phone: [phone]
[2021-04-14] MEDS: SODIUM CHLORIDE 0.9% 1,000 ML 200 ML IV (08:58)
--- NOTE | 2021-04-14 09:08 | PM.HP.1 ---
History of Present Illness History of Present Illness Date Patient Seen: 04/14/21 Time Patient Seen: 09:08 Chief complaint: SDC Narrative: This is a 81-year-old man who had an emergency EGD and disimpaction of an obstructing meat bolus in his esophagus. He was found to have duodenal ulcers, and esophageal candidiasis. He was put on empiric treatment for H pylori, and antifungal treatment for the Karen. He has had significant improvement of his symptoms, and had a follow up EGD several months ago. I saw him in November, and he was doing well. He has since completed all of his antifungal treatment, and has been seen by infectious disease. He he believes he may have been referred to gastroenterology for another upper endoscopy, but he is here today for surveillance EGD. He denies any significant dysphagia symptoms, although he said he did have some trouble with peanut butter and crackers last night. He was able to wash it down with some water, and resolved. Otherwise he feels well and not having any other complaints. ROS: Hard of hearing; rash on scalp. Thirteen system review is otherwise negative other than as mentioned below and in HPI. PE: GENERAL: Well groomed and cooperative. Appears stated age. Answers questions promptly and appropriately. Vital signs noted. HENT: Normocephalic, atraumatic. Gravelly voice EYES: Conjunctiva pink, sclera white, no periorbital swelling. CARDIOVASCULAR: Regular rate. No pedal edema. RESPIRATORY: Non-tachypneic, breathing comfortably on room air. GASTROINTESTINAL: Abdomen soft and non-distended MUSCULOSKELETAL: Equal tone and mass bilaterally. SKIN: Warm, dry, soft, appropriate color for ethnicity. No other lesions, rashes, or wounds. NEURO: Alert and Oriented X 3. No gross sensory deficits, or cognitive issues. PSYCH: Appropriate affect and mood. Patient History Family & Social History Social History: household members none Tobacco & Substance use: Smoking Status Former smoker alcohol intake current alcohol intake frequency a few times a week Substance Use Type does not use Meds Home Medications and Allergies Home Medications Medication Instructions Recorded Confirmed Type Spiriva with HandiHaler 1 puff INH QDAY #0 10/22/17 04/14/21 History atorvastatin 20 mg PO QPM 08/08/20 04/14/21 History lisinopril 20 mg PO DAILY 08/08/20 04/14/21 History metformin 500 mg PO DAILY 08/08/20 04/14/21 History prednisone 5 mg PO PER PKG DIR 11/12/20 11/25/20 History famotidine 20 mg tablet 20 mg PO BID #60 tab 11/26/20 04/14/21 Rx fluconazole 200 mg tablet 200 mg PO DAILY #30 tab 11/26/20 11/26/20 Rx Allergies Allergy/AdvReac Type Severity Reaction Status Date / Time No Known Drug Allergies Allergy Verified 02/23/21 16:48 Exam Vital Signs (past 8 hours): - 04/14/21 08:34 Temperature 97.1 F L Pulse Rate 83 Respiratory Rate 22 Blood Pressure 133/71 Pulse Oximetry 99 Oxygen Delivery Method Room Air Assessment & Plan Assessment and plan (1) Dysphagia: Qualifiers: Dysphagia type: unspecified Qualified Code(s): R13.10 - Dysphagia, unspecified Status: Acute (2) Peptic ulcer disease: Status: Acute (3) Esophageal yeast infection: Status: Acute (4) Fungal esophagitis: Status: Acute Assessment & Plan narrative: Risks and benefits of surveillance EGD and possible biopsy was discussed with the patient including risk of bleeding, perforation, need for additional procedures, risks of anesthesia. The patient desires to proceed with the EGD procedure. COVID-19 COVID-19 status: Negative Result date/Date tested (Pos, Neg/Pending): 04/13/21 Time Spent With Patient Time with patient: 15-24 minutes Quality VTE Deep Vein Thrombosis/Pulmonary Embolism Present on Admission: No
--- NOTE | 2021-04-14 09:11 | PM.OP.ENDO ---
Operative Date/Time/Diagnoses Date of procedure: 04/14/21 Time of procedure: 09:16 Pre-op diagnosis: Dysphagia, fungal esophagitis Procedure & Clinicians Study performed: Esophagogastroduodenoscopy Procedural sedation performed by the endoscopist Same procedure as scheduled: Yes Indications: Dysphagia, history of fungal esophagitis, here for post treatment surveillance Surgeon: Yanet Rodrigues Procedure Notes SCOAP/Timeout: Performed Procedure in detail: The patient was brought to the room and placed in left lateral decubitus position with all bony prominences padded. A bite block was positioned in the patient's mouth to protect the lips, teeth, and tongue for the procedure. A time-out was performed and then the patient was given procedural sedation starting with 4 mg of Versed and 100 mcg of fentanyl. Vitals were monitored throughout the procedure and remained stable. Once adequately sedated, the procedure was begun. The lubricated gastroscope was passed through the bite block and across the tongue and into the esophagus without incident. A tubular view of the esophagus was maintained as the scope was advanced through the esophagus and into the stomach. The scope was advanced through the stomach and to the pylorus. The scope was gently popped through the pylorus and into the duodenal bulb. The scope was flexed and advanced into the second and third portions of the duodenum. The duodenum and duodenal bulb appeared normal, with no visible ulcers. The scope was withdrawn into the stomach. The stomach appeared normal, with mild endoscopic gastritis. Biopsies were taken. The scope was retroflexed and the gastric cardia was examined. The hiatus appeared normal, other than copious secretions coming down from the esophagus. The scope was then straightened, and withdrawn into the esophagus. The Z-line appeared normal. The distal esophagus appeared normal. Biopsies were taken. The scope was then withdrawn through the esophagus with a tubular view. The scope was then withdrawn from the patient the procedure was concluded. The patient tolerated the procedure well and was transferred to the PACU in stable condition. Sedation minutes: 16 Findings: gastritis (Mild) Impression: Mild endoscopic gastritis, no other abnormalities seen on today's exam. Biopsies for follow-up of prior fungal esophagitis. Post-procedure Recommendations: Other recommendation (Continue famotidine, other recommendations will be forthcoming, pending biopsy results) Follow up: as needed Disposition: PACU
[2021-04-14] MEDS: fentaNYL 250 MCG/5 ML INJ IV (09:16)
[2021-04-14] MEDS: MIDAZOLAM 5 MG/5 ML VIAL IV (09:16)
[2021-04-14] MEDS: LIDOCAINE 4% SOLN 50 ML 20 ML TOP (09:25)
== END 2021-04-14 10:23 | disposition home or self-care (01) ==
PROVIDERS: Family Provider Family Medicine; PCP Family Medicine; Referring Provider Surgery; Visit Provider Surgery
PROC: 0DJ08ZZ Inspection of Upper Intestinal Tract, Via Natural or Artificial Opening Endoscopic (ICD-10-PCS; CPT 43235; principal; 2021-04-14 09:15)
DX: R13.10 Dysphagia, unspecified (principal); Z09 Encounter for follow-up examination after completed treatment for conditions other than malignant neoplasm; Z87.19 Personal history of other diseases of the digestive system; K29.70 Gastritis, unspecified, without bleeding; K29.50 Unspecified chronic gastritis without bleeding
CPT/HCPCS: 43239; 82962; 99152; J2250; J3010

== ENCOUNTER 2022-05-08 09:57 | Emergency (ER) | payer MEDICARE, SELFPAY ==
[2020-11-08 13:23] VITALS: BMI 25.8
[2022-05-08 10:13] VITALS: BP 183/84; PULSE 80; RESP 16; TEMP 36.6; O2SAT 96; BMI 27.3
--- NOTE | 2022-05-08 14:17 | ED.NEUROSD ---
HPI - Neuro Symptoms/Deficit General Chief Complaint: Neuro Symptoms/Deficit Stated Complaint: Facial spasms/ vision changes right side Time Seen by Provider: 05/08/22 14:16 History of Present Illness On Anticoagulants: No Related Data Home Medications Medication Instructions Recorded Confirmed tiotropium bromide 18 mcg capsule 1 puff INH QDAY ##0 10/22/17 04/14/21 with inhalation device (Spiriva with HandiHaler) atorvastatin 20 mg tablet 20 mg PO QPM 08/08/20 04/14/21 lisinopril 20 mg tablet 20 mg PO DAILY 08/08/20 04/14/21 metformin 500 mg tablet,extended 500 mg PO DAILY 08/08/20 04/14/21 release 24 hr prednisone 5 mg tablets in a dose 5 mg PO PER PKG DIR 11/12/20 11/25/20 pack Previous Rx's Medication Instructions Recorded famotidine 20 mg tablet 20 mg PO BID duodenal ulcers #60 11/26/20 tabs fluconazole 200 mg tablet 200 mg PO DAILY persistent 11/26/20 esophageal candidiasis #30 tabs Allergies Allergy/AdvReac Type Severity Reaction Status Date / Time No Known Drug Allergies Allergy Verified 02/23/21 16:48 Review of Systems Hematologic/Lymphatic On Anticoagulants: No Patient History Social History household members: none Smoking Status: Former smoker alcohol intake: current Smoking Status: Former smoker alcohol intake frequency: a few times a week Substance Use Type: does not use Exam Initial Vital Signs Initial Vital Signs: Vital Signs Temperature 97.9 F 05/08/22 10:13 Pulse Rate 80 05/08/22 10:13 Respiratory Rate 16 05/08/22 10:13 Blood Pressure 183/84 H 05/08/22 10:13 Pulse Oximetry 96 05/08/22 10:13 Oxygen Delivery Method 05/08/22 10:13 Course Vital Signs Vital signs: Vital Signs - 8 hr 05/08/22 10:13 Temperature 97.9 F Pulse Rate 80 Respiratory Rate 16 Blood Pressure 183/84 H Pulse Oximetry 96 Oxygen Delivery Method Room Air Discharge Plan Departure Prescriptions: No Action Spiriva with HandiHaler 18 MCG capsule, w/inhalation device 1 puff INH QDAY Qty: 0 fluconazole 200 mg tablet 200 mg PO DAILY Qty: 30 0RF Rx Instructions: Stop taking Hydroxizine famotidine 20 mg tablet 20 mg PO BID Qty: 60 5RF prednisone 5 mg Tablets,Dose Pack 5 mg PO PER PKG DIR atorvastatin 20 mg Tablet 20 mg PO QPM lisinopril 20 mg Tablet 20 mg PO DAILY metformin 500 mg Tablet Extended Release 24 Hr 500 mg PO DAILY Referrals: Alexander Scott MD [Primary Care Provider] -
--- NOTE | 2022-05-08 14:22 | PC.NURSE ---
pt reports that he had involuntary sudden onset eye twitching that started about 1hr [employer]. FAST negative. NIH 0 and having no visual disturbance at triage.
--- NOTE | 2022-05-08 14:23 | PC.NURSE ---
1300: brought to room 3 for MACHINE PAINT MIXER at 1300. On MACHINE PAINT MIXER arrival, pt was not in room. RN did not witness pt leave. Pt not in bathroom. MACHINE PAINT MIXER made aware. Will wait to see if patient returns.
== END 2022-05-08 14:16 | disposition left against medical advice (07) ==
PROVIDERS: Emergency Provider Nurse Practitioner Critical Care Medicine; Family Provider Family Medicine; PCP Family Medicine
CPT/HCPCS: 99283

== ENCOUNTER 2022-05-09 07:18 | Emergency (ER) | payer MEDICARE, SELFPAY ==
[2020-11-08 13:23] VITALS: BMI 25.8
[2022-05-09 07:25] VITALS: BP 169/79; PULSE 88; RESP 14; TEMP 36.4; O2SAT 95
[2022-05-09 07:45] VITALS: PULSE 83; O2SAT 98
[2022-05-09 08:00] VITALS: BP 136/60; PULSE 81; O2SAT 97
[2022-05-09 08:30] VITALS: BP 128/62; PULSE 85; O2SAT 98
--- NOTE | 2022-05-09 08:45 | ED.NEUROSD ---
HPI - Neuro Symptoms/Deficit General Chief Complaint: Neuro Symptoms/Deficit Stated Complaint: facial spasms, thinks he might of had stroke Time Seen by Provider: 05/09/22 08:34 Source: patient Mode of arrival: Ambulatory History of Present Illness HPI Narrative: This 82-year-old man with chronic cough and chronic bronchitis, diabetes, hypertension and shingles infection on the right side of his head about 6 months ago comes to the ED today with right facial twitching. He says it started yesterday morning and he came to the ED and waited for 8 hours but ultimately left without being seen. The symptoms are much better today but they still persistent in a less dramatic way. He notices twitching of the muscles in the right lower face. Yesterday he also noticed twitching around his eye. He denies any visual disturbance, any pain. He does say that this morning the right side of his lips are numb. He does still have some of the twitching in the lower face. He has no dysfunction of speech, vision, upper lower extremity strength or coordination or gait. No recent illness or viral symptoms. He denies fever or chest symptoms other than his chronic cough On Anticoagulants: No Related Data Home Medications Medication Instructions Recorded Confirmed tiotropium bromide 18 mcg capsule 1 puff INH QDAY ##0 10/22/17 04/14/21 with inhalation device (Spiriva with HandiHaler) atorvastatin 20 mg tablet 20 mg PO QPM 08/08/20 04/14/21 lisinopril 20 mg tablet 20 mg PO DAILY 08/08/20 04/14/21 metformin 500 mg tablet,extended 500 mg PO DAILY 08/08/20 04/14/21 release 24 hr prednisone 5 mg tablets in a dose 5 mg PO PER PKG DIR 11/12/20 11/25/20 pack Previous Rx's Medication Instructions Recorded famotidine 20 mg tablet 20 mg PO BID duodenal ulcers #60 11/26/20 tabs fluconazole 200 mg tablet 200 mg PO DAILY persistent 11/26/20 esophageal candidiasis #30 tabs acyclovir 800 mg tablet 800 mg PO 5XD 7 days #35 tabs 05/09/22 Allergies Allergy/AdvReac Type Severity Reaction Status Date / Time No Known Drug Allergies Allergy Verified 02/23/21 16:48 Review of Systems Review of Systems Narrative: Complete review of systems is negative other than as noted above in the HPI Hematologic/Lymphatic On Anticoagulants: No Patient History Social History household members: none Smoking Status: Former smoker alcohol intake: current Smoking Status: Former smoker alcohol intake frequency: a few times a week Substance Use Type: does not use Exam Narrative Exam Narrative: GENERAL: Alert, cooperative and in no distress. HEAD: Atraumatic. Normocephalic. EYES: Sclera are clear without icterus. Extraocular movements are full. ENT: No rhinorrhea. Oropharynx is moist. Mouth exam is benign. NECK: Supple. Full range of motion. CARDIOVASCULAR: Normal rate and rhythm without murmur gallop or rub. RESPIRATORY: Clear to auscultation. Breath sounds equal bilaterally. No wheezes, rales, or rhonchi. GASTROINTESTINAL: Abdomen soft, non-tender, nondistended. EXTREMITIES: No edema, full range of motion. No obvious trauma. BACK: Normal inspection, no CVA tenderness. NEURO: Nonfocal examination, normal speech, cranial nerves 2 through 12 are normal. No flattening of the nasolabial fold specifically. He is able to feel his cheeks with air without any leakage. His speech is normal. His vision is normal with normal peripheral vision. Motor function of the facial cranial nerve is normal with detailed examination on the right. Upper lower extremity strength is normal. Coordination with his upper extremities is normal. SKIN: No rash or erythema of visible areas PSYCH: Normally oriented. Normal range of affect. Appropriate behavior Initial Vital Signs Initial Vital Signs: Vital Signs Temperature 97.6 F 05/09/22 07:25 Pulse Rate 88 05/09/22 07:25 Respiratory Rate 14 05/09/22 07:25 Blood Pressure 169/79 H 05/09/22 07:25 Pulse Oximetry 95 05/09/22 07:25 Oxygen Delivery Method 05/09/22 07:25 Course Vital Signs Vital signs: Vital Signs - 8 hr 05/09/22 07:25 05/09/22 07:45 05/09/22 08:00 Temperature 97.6 F Pulse Rate 88 83 Respiratory Rate 14 Blood Pressure 169/79 H 136/60 Pulse Oximetry 95 98 Oxygen Delivery Method Room Air 05/09/22 08:00 05/09/22 08:30 05/09/22 08:30 Temperature Pulse Rate 81 85 Respiratory Rate Blood Pressure 128/62 Pulse Oximetry 97 98 Oxygen Delivery Method 05/09/22 08:50 Temperature Pulse Rate 78 Respiratory Rate Blood Pressure Pulse Oximetry 98 Oxygen Delivery Method MDM - Neuro Symptoms/Deficit MDM Narrative Medical decision making narrative: I think this is a peripheral nerve problem. I can see the twitching of the muscles in the right face. With a decreased sensation now I think that this is likely going to develop into a Tenorio's palsy but he has no paralysis at this point. I do not think that this is a central nerve lesion with a normal neurologic examination. His symptoms of muscle twitching seem much more consistent with a peripheral nerve abnormality. I will treat him empirically with Zovirax as I expect this will likely develop into facial nerve palsy Discharge Plan Departure Clinical Impression: Facial nerve palsy Activity Restrictions/Additional Instructions: Thank you for interesting as with your care today. I do not believe the symptoms represent stroke. I think the most likely explanation is a peripheral nerve abnormality in your 7th cranial nerve. This is the nerve the controls the muscles in your face. Commonly inflammation occurs like this with Tenorio's palsy. The you do not have any weakness in your face right now, the numbness you feeling your lips is often associated with Tenorio's palsy as well. I recommend acyclovir 5 times daily. If you have paralysis in your face a physician should look at it again to make sure that it does not represent stroke. You should either go to your doctor's office or come to the ER. If you have any other symptoms such as vision disturbance, speech disturbance, difficulty with walking or using your arms, you should call 911. These symptoms typically resolve within a week or 2 but can persist for many weeks and rarely are permanent. Follow-up with your doctor in a week if symptoms have not improved significantly Prescriptions: New acyclovir 800 mg tablet 800 mg PO 5XD 7 Days Qty: 35 0RF Rx Instructions: space evenly during waking hours No Action Spiriva with HandiHaler 18 MCG capsule, w/inhalation device 1 puff INH QDAY Qty: 0 fluconazole 200 mg tablet 200 mg PO DAILY Qty: 30 0RF Rx Instructions: Stop taking Hydroxizine famotidine 20 mg tablet 20 mg PO BID Qty: 60 5RF prednisone 5 mg Tablets,Dose Pack 5 mg PO PER PKG DIR atorvastatin 20 mg Tablet 20 mg PO QPM lisinopril 20 mg Tablet 20 mg PO DAILY metformin 500 mg Tablet Extended Release 24 Hr 500 mg PO DAILY Referrals: Alexander Scott MD [Primary Care Provider] -
[2022-05-09 08:50] VITALS: PULSE 78; O2SAT 98
== END 2022-05-09 09:13 | disposition home or self-care (01) ==
PROVIDERS: Emergency Provider Family Medicine Addiction Medicine; Family Provider Family Medicine; PCP Family Medicine
DX: G51.0 Bell's palsy (principal)
CPT/HCPCS: 99281

== ENCOUNTER → 2022-05-19 07:34 | Outpatient (CLI) | payer MEDICARE, SELFPAY ==
[2020-11-08 13:23] VITALS: BMI 25.8
--- NOTE | 2022-05-19 | DI.MRI.S_ITS ---
PROCEDURE: MR STROKE INDICATIONS: Paresthesia of skin TECHNIQUE: Brain: Noncontrast axial T1 spin echo, axial T2 fast spin echo, sagittal and axial FLAIR, coronal T2 fast spin echo, axial gradient echo, axial diffusion and ADC through the brain. MR angiogram: Noncontrast axial 3D [id number] MR angiogram, with maximum intensity projection reformats of the internal carotid arteries and posterior circulation then performed. COMPARISON: None. FINDINGS: Image quality: Excellent. BRAIN: CSF Spaces: Basal cisterns are patent. No extra-axial fluid collections. Ventricles are normal in size and shape. [id number] overall volume loss. Brain: No midline shift. No intracranial bleeds or mass effects. The brainstem appears normal. Khoury/white matter interface appears normal. Diffusion-weighted images demonstrate no acute ischemic insult. No chronic ischemic insults. Normal intravascular flow voids are present. 17 by 19 mm left frontal diffusion restricting, rim enhancing mass at the khoury-white junction with moderate degree of surrounding vasogenic edema. Mild periventricular white matter FLAIR signal, likely chronic small vessel disease. Skull and face: Calvarium has normal marrow signal. Orbits appear normal. Sinuses: Maxillary hypoplasia. Right maxillary mucosal thickening. BRAIN MR ANGIOGRAM: Anterior circulation: Intracranial internal carotid arteries demonstrate normal size and intraluminal flow signal. The flow within the paired anterior cerebral arteries is normal and symmetric. The flow within the middle cerebral arteries is normal and symmetric. The anterior communicating artery is seen. No stenoses, occlusions, or aneurysms. Posterior circulation: The visualized vertebral arteries demonstrate normal caliber, and join to form a normal appearing basilar artery. The flow within the posterior cerebral arteries is normal and symmetric. Note is made of normal appearing posterior cerebral arteries. No stenoses, occlusions, or aneurysms. IMPRESSION: No acute stroke. There is a mass in the left frontal lobe measuring up to 19 mm at the khoury-white junction, suspicious for metastasis. Moderate surrounding vasogenic edema. No herniation. Further malignancy workup is recommended. No vascular stenoses or occlusions. Dictated by: Isaac Baltazar M.D. on 05/19/2022 at 8:54 Approved by: Isaac Baltazar M.D. on 05/19/2022 at 9:11
== END ==
PROVIDERS: Family Provider Family Medicine; PCP Family Medicine; Referring Provider Family Medicine; Visit Provider Family Medicine
DX: G93.9 Disorder of brain, unspecified (principal); G93.6 Cerebral edema; R20.2 Paresthesia of skin
CPT/HCPCS: 70548; 70553; A9579

== ENCOUNTER → 2022-05-23 13:13 | Outpatient (ROUT) | payer MEDICARE, SELFPAY ==
[2020-11-08 13:23] VITALS: BMI 25.8
[2022-05-23 14:54] LABS: BUN Creatinine Ratio 14.6 (6-22); Blood Urea Nitrogen 13 mg/dL (9-20); Estimated Glomerular Filt Rate > 60 mL/min (>60)
[2022-05-23 15:23] LABS: Prostate Specific Antigen 0.426 ng/mL (0.10-4.00)
== END ==
PROVIDERS: Family Provider Family Medicine; PCP Family Medicine; Visit Provider Family Medicine
DX: C79.31 Secondary malignant neoplasm of brain (principal)
CPT/HCPCS: 82565; 84153; 84520

== ENCOUNTER → 2022-05-25 09:11 | Outpatient (CLI) | payer MEDICARE, SELFPAY ==
[2020-11-08 13:23] VITALS: BMI 25.8
--- NOTE | 2022-05-25 | DI.CT.S_ITS ---
PROCEDURE: CT CHEST ABD PEL W CON INDICATIONS: Secondary malignant neoplasm of brain TECHNIQUE: After the administration of oral and intravenous contrast, axial sections acquired from the supraclavicular neck to the pubic symphysis. Coronal and sagittal reformats were performed. For radiation dose reduction, the following was used: automated exposure control, adjustment of mA and/or kV according to patient size. COMPARISON: [facility], MR, MR STROKE, 05/19/2022, 8:09. FINDINGS: Image quality: Excellent. CHEST: Lower Neck: No enlarged lymph nodes. Thyroid: There is an exophytic inferior medial right thyroid nodule measuring 2.3 cm. Axillae: No enlarged lymph nodes. Chest Wall: Unremarkable. Lungs and Airways: Multilobulated left infrahilar mass measuring 3.3 x 3.5 x 2.5 cm. Moderate centrilobular emphysema. Ill-defined ground-glass opacity surrounding multiple dilated right lower lobe bronchi in the right infrahilar region, possibly representing a adenocarcinoma in situ, measuring 3.3 x 2.7 cm. No consolidation. Pleura: No pneumothorax or pleural effusions. Heart: Heart size is normal. No pericardial effusion. Thoracic Vessels: The aorta and pulmonary arteries demonstrate normal size. Mediastinum and Avis: Necrotic metastatic right hilar lymph node measuring 2.5 x 2.7 x 2.3 cm. Esophagus: No wall thickening. Small hiatal hernia. ABDOMEN: Liver: Unremarkable. Gallbladder: Unremarkable Biliary ducts: Unremarkable. Pancreas: Unremarkable. Spleen: Unremarkable. Adrenal Glands: Unremarkable. Kidneys and Ureters: Unremarkable. Stomach and Bowel: Sigmoid diverticulosis without evidence of diverticulitis. Peritoneum: No abnormal intraperitoneal fluid. No free air. Ventral Wall: No hernia. Abdominal Nodes: No retroperitoneal or mesenteric adenopathy by size criteria. Vessels: Aorta and inferior vena cava are normal in size. PELVIS: Pelvic Organs: Unremarkable. Bladder: Unremarkable. Pelvic Nodes: No enlarged lymph nodes. Miscellaneous: Small bilateral fat containing inguinal hernias. Bones: Lumbar degenerative change. No lytic or blastic bony lesions. No compression fractures. IMPRESSION: 1. Moderate centrilobular emphysema. 2. A lobulated, necrotic left infrahilar lung mass measuring 3.5 cm in maximum diameter is likely this patient's primary neoplasm. It should be accessible for diagnosis utilizing bronchoscopy. 3. Necrotic metastatic ipsilateral left hilar lymph node. 4. Possible adenocarcinoma in situ in the right hilar region. 5. No evidence of metastatic disease in the abdomen and pelvis. Dictated by: Randy Howe M.D. on 05/25/2022 at 12:45 Approved by: Randy Howe M.D. on 05/25/2022 at 12:55
== END ==
PROVIDERS: Family Provider Family Medicine; PCP Family Medicine; Referring Provider Family Medicine; Visit Provider Family Medicine
DX: C79.31 Secondary malignant neoplasm of brain (principal); C80.1 Malignant (primary) neoplasm, unspecified; C77.1 Secondary and unspecified malignant neoplasm of intrathoracic lymph nodes; J43.2 Centrilobular emphysema; R91.8 Other nonspecific abnormal finding of lung field
CPT/HCPCS: 71260; 74177; Q9967

== ENCOUNTER → 2022-06-06 09:12 | Outpatient (ROUT) | payer MEDICARE, SELFPAY ==
[2020-11-08 13:23] VITALS: BMI 25.8
[2022-06-06 09:36] LABS: COVID19 -Nasal RAPID Negative (Negative)
== END ==
PROVIDERS: Family Provider Family Medicine; PCP Family Medicine; Visit Provider Family Medicine
DX: Z20.822 Contact with and (suspected) exposure to COVID-19 (principal)
CPT/HCPCS: 87635

== ENCOUNTER → 2022-07-19 17:02 | Outpatient (CLI) | payer MEDICARE, SELFPAY ==
[2020-11-08 13:23] VITALS: BMI 25.8
--- NOTE | 2022-07-19 17:05 | DI.MRI.S_ITS ---
PROCEDURE: MR HEAD/BRAIN WO/W CON INDICATIONS: lung cancer, brain met, assess progression TECHNIQUE: Noncontrast axial T1 spin echo, axial T2 fast spin echo, sagittal and axial FLAIR, coronal T2 fast spin echo, axial gradient echo, axial diffusion and ADC through the brain. After the administration of contrast, axial and coronal and sagittal T1 spin echo with fat saturation through the brain. COMPARISON: None. FINDINGS: Image quality: Excellent. CSF spaces: Basal cisterns are patent. No extra-axial fluid collections. Ventricles are normal in size and shape. Brain: There is an enhancing mass in the left frontoparietal region measuring 2.7 x 3.3 by 2.3 cm consistent with intracranial metastasis. Surrounding vasogenic edema is seen. There is no midline shift or significant mass effect. No intracranial bleeds or masses. No other abnormal intracranial enhancement. There is cerebral volume loss for age. There is periventricular white matter chronic small vessel ischemic change. The brainstem appears normal. Diffusion-weighted images demonstrate diffusion restriction of the tumor described above with no evidence of acute ischemic insults. No chronic ischemic insults. Normal intravascular flow voids are present. Skull and face: Calvarial marrow is normal in signal. Orbits appear normal. Sinuses: Sinuses and mastoids appear clear. IMPRESSION: 2.7 x 3.3 x 2.3 cm left frontoparietal mass consistent with metastatic disease. Dictated by: Freddie Hickey M.D. on 07/19/2022 at 19:50 Approved by: Freddie Hickey M.D. on 07/19/2022 at 19:53
== END ==
PROVIDERS: Family Provider Family Medicine; PCP Family Medicine; Referring Provider Internal Medicine Medical Oncology; Visit Provider Internal Medicine Medical Oncology
DX: C79.31 Secondary malignant neoplasm of brain (principal); C34.32 Malignant neoplasm of lower lobe, left bronchus or lung
CPT/HCPCS: 70553; A9579

== ENCOUNTER → 2022-08-31 09:03 | Outpatient (CLI) | payer MEDICARE, SELFPAY ==
[2020-11-08 13:23] VITALS: BMI 25.8
--- NOTE | 2022-08-31 09:05 | DI.MRI.S_ITS ---
PROCEDURE: MR HEAD/BRAIN WO CON INDICATIONS: Altered mental status, unspecified. This patient has a known history of a brain mass. The patient gives no history surgery. TECHNIQUE: Non-contrast axial T1 spin echo, axial T2 fast spin echo, sagittal and axial FLAIR, coronal T2 fast spin echo, axial gradient echo, axial diffusion and ADC through the brain. COMPARISON: [facility], NM, PET NECK TO MID THIGH, 08/02/2022, 8:58. [facility], MR, MR STROKE, 05/19/2022, 8:09. [facility], MR, MR HEAD/BRAIN WO/W CON, 07/19/2022, 17:40. FINDINGS: Image quality: The patient was unable to be appropriately positioned to use the standard coils, secondary to difficulty in breathing. This severely limits the images. CSF spaces: Ventricles appear symmetric in size and shape. Basal cisterns are patent. No extra-axial fluid collections. Brain: Within the left frontal lobe, there is again seen a T2 hyperintense ovoid focus that measures 3.7 x 2.4 cm in greatest axial dimension, with a craniocaudal extent of 2.9 cm. On the prior study, this measured 2.7 x 3.3 x 2.3 cm. There is mild surrounding edema. The degree of edema is decreased compared to the prior. Along the margins of the lesion (particularly along the posterior margin) there is mild susceptibility artifact seen. There is cerebral volume loss for age. There are periventricular and deep white matter chronic small vessel ischemic changes. Brainstem appears normal. Diffusion-weighted images show no acute ischemic insults. No chronic ischemic insults. Normal intravascular flow voids are present. Skull and face: Calvarial bone marrow is normal in signal. Orbits are normal. Note is made of bilateral lens replacements. Sinuses: Sinuses and mastoids are clear. IMPRESSION: Interval increase in size of the T2 hyperintense mass involving the left frontal lobe posteriorly. However, the degree surrounding vasogenic edema has decreased compared to the prior. Please correlate with interval treatment history. Mild susceptibility artifact can be seen along the margins of the lesion, particularly along the posterior margin. This is consistent with mild hemorrhage. Dictated by: Lester Owusu M.D. on 08/31/2022 at 10:30 Approved by: Lester Owusu M.D. on 08/31/2022 at 10:46
== END ==
PROVIDERS: Family Provider Family Medicine; PCP Family Medicine; Referring Provider Family Medicine; Visit Provider Family Medicine
DX: G93.9 Disorder of brain, unspecified (principal); G93.6 Cerebral edema; R41.82 Altered mental status, unspecified
CPT/HCPCS: 70551